=== PATIENT | male | born 1980 | race Caucasian/White ===

== ENCOUNTER 2018-05-12 01:27 | Emergency (ER) | payer SELFPAY ==
[2018-05-12 01:36] VITALS: BP 128/66
[2018-05-12] MEDS ORDERED: IBUPROFEN 800 MG TABLET PO ONE (01:50)
--- NOTE | 2018-05-12 01:58 | ER Document Report ---
ED Extremity Problem, Lower - General Chief Complaint: Ankle Injury Stated Complaint: ANKLE INJURY Time Seen by Provider: 05/12/18 01:49 Notes: Patient is a 37-year-old male who was walking down stairs this evening. States that his ankle rolled in because of the way that step was built. Patient initially was able to walk on his right leg and now cannot bear weight on it. Denies any other injuries. TRAVEL OUTSIDE OF THE [place] IN LAST 30 DAYS: No - HPI Patient complains to provider of: Injury, Pain, Swelling Location: Ankle Occurred: Just prior to arrival Where: Home Onset/Duration: Sudden Quality of pain: Achy, Dull Severity: Moderate Recent injury: Yes Exacerbated by: Walking Relieved by: Elevation, Rest - Related Data Allergies/Adverse Reactions: No Known Allergies Allergy (Verified 08/18/16 10:02) Past Medical History - General Information source: Patient - Social History Smoking Status: Unknown if Ever Smoked Drug Abuse: Other - h/o substance abuse Family History: Reviewed & Not Pertinent Psychiatric Medical History: Reports: Hx Depression Surgical Hx: Negative - Immunizations Hx Diphtheria, Pertussis, Tetanus Vaccination: Yes Review of Systems - Review of Systems Constitutional: No symptoms reported EENT: No symptoms reported Cardiovascular: No symptoms reported Respiratory: No symptoms reported Gastrointestinal: No symptoms reported Genitourinary: No symptoms reported Male Genitourinary: No symptoms reported Musculoskeletal: See HPI Skin: No symptoms reported Hematologic/Lymphatic: No symptoms reported Neurological/Psychological: No symptoms reported Physical Exam - Vital signs Vitals: Temp Pulse Resp BP Pulse Ox 98.5 F 92 16 128/66 H 95 05/12/18 01:35 05/12/18 01:35 05/12/18 01:35 05/12/18 01:35 05/12/18 01:35 Interpretation: Normal - General General appearance: Appears well, Alert - HEENT Head: Normocephalic, Atraumatic Eyes: Normal Pupils: PERRL - Respiratory Respiratory status: No respiratory distress Chest status: Nontender Breath sounds: Normal Chest palpation: Normal - Cardiovascular Rhythm: Regular Heart sounds: Normal auscultation Murmur: No - Abdominal Inspection: Normal Distension: No distension Bowel sounds: Normal Tenderness: Nontender Organomegaly: No organomegaly - Back Back: Normal, Nontender - Extremities General upper extremity: Normal inspection, Nontender, Normal color, Normal ROM , Normal temperature General lower extremity: Tender, Normal color, Normal temperature. No: Dot's sign Shoulder: Normal Arm: Normal Elbow: Normal Forearm: Normal Wrist: Normal Hand: Normal Hip: Normal Thigh: Normal Knee: Normal Calf: Normal Ankle: Tender - Right lateral malleolus and inferior to the right lateral malleolus - Neurological Neuro grossly intact: Yes Cognition: Normal Orientation: AAOx4 [place] Coma Scale Eye Opening: Spontaneous [place] Coma Scale Verbal: Oriented Brianna Coma Scale Motor: Obeys Commands Brianna Coma Scale Total: 15 Speech: Normal Motor strength normal: LUE, RUE, LLE, RLE Sensory: Normal - Psychological Associated symptoms: Normal affect, Normal mood - Skin Skin Temperature: Warm Skin Moisture: Dry Skin Color: Normal Course - Re-evaluation Re-evalutation: 05/12/18 02:55 No acute findings on x-ray. Patient will be placed in an ankle stirrup and given crutches. No other injuries. Stable for discharge. He may take over-the -counter medications as needed for pain. Agreeable with this plan. Follow-up with PMD. - Vital Signs Vital signs: Temp Pulse Resp BP Pulse Ox 98.5 F 92 16 128/66 H 95 05/12/18 01:35 05/12/18 01:35 05/12/18 01:35 05/12/18 01:35 05/12/18 01:35 - Diagnostic Test Radiology reviewed: Reports reviewed Procedures - Immobilization Right Ankle Pre-Proc Neuro Vasc Exam: Normal Immobilizer type: Ankle stirrup Performed by: PCT Post-Proc Neuro Vasc Exam: Normal Alignment checked and good: Yes Discharge - Discharge Clinical Impression: Right ankle sprain Qualifiers: Encounter type: initial encounter Involved ligament of ankle: unspecified ligament Qualified Code(s): S93.401A - Sprain of unspecified ligament of right ankle, initial encounter Condition: Stable Disposition: HOME, SELF-CARE Instructions: Ankle Stirrup Splint ([facility]), Use of Crutches ([facility]), Ice & Elevation ([facility]), Sprained Ankle ([facility]) Additional Instructions: Please follow-up with your doctor in 1 week. Please asked for orthopedic referral if symptoms persist.
--- NOTE | 2018-05-12 02:26 | RADIOLOGY REPORT (SQ) ---
EXAM DESCRIPTION: XR ANKLE 2 VIEWS COMPLETED DATE/TME: 05/12/2018 01:50 CLINICAL HISTORY: 37 years, Male, injury, pain COMPARISON: None. FINDINGS: 3 views of the right ankle. No acute fracture or dislocation. Normal osseous mineralization. Tibial plafond and talar dome have appropriate alignment. Base of the fifth metatarsal is intact. Diffuse soft tissue edema. IMPRESSION: No acute fracture or dislocation. 2010 [employer]- All Rights Reserved
--- NOTE | 2018-05-12 08:07 | RADIOLOGY REPORT (SQ) ---
EXAM DESCRIPTION: FOOT RIGHT COMPLETE COMPLETED DATE/TIME: 05/12/2018 2:09 am REASON FOR STUDY: injury, pain COMPARISON: None. NUMBER OF VIEWS: Three views. TECHNIQUE: AP, lateral and oblique radiographic images acquired of the right foot. LIMITATIONS: None. FINDINGS: MINERALIZATION: Normal. BONES: No acute fracture or dislocation. No worrisome bone lesions. JOINTS: No effusions. SOFT TISSUES: No soft tissue swelling. No foreign body. OTHER: No other significant finding. IMPRESSION: NEGATIVE STUDY OF THE RIGHT FOOT. NO RADIOGRAPHIC EVIDENCE OF ACUTE INJURY. TECHNICAL DOCUMENTATION: JOB ID: [id number] [employer]- All Rights Reserved Reading location - IP/workstation name: [email or web address]
== END 2018-05-12 03:00 | disposition home or self-care (01) ==
LOC: ER 01:27
DX: S93.401A Sprain of unspecified ligament of right ankle, initial encounter (principal); X50.0XXA Overexertion from strenuous movement or load, initial encounter; Y92.009 Unspecified place in unspecified non-institutional (private) residence as the place of occurrence of the external cause
CPT/HCPCS: 99283; 73610; 73630; L1902

== ENCOUNTER 2018-12-20 13:14 | Emergency (ER) | payer SELFPAY ==
[2018-12-20 14:02] VITALS: BP 125/70
--- NOTE | 2018-12-20 14:48 | ER Document Report ---
ED General - General Chief Complaint: Abscess Stated Complaint: POSSIBLE ABSCESS Time Seen by Provider: 12/20/18 14:41 Primary Care Provider: [facility] [Provider Group] - Follow up in 3-5 days TRAVEL OUTSIDE OF THE [place] IN LAST 30 DAYS: No - HPI Notes: Patient is a 38-year-old male that presents to the emergency department for chief complaint of left axillary abscess. Patient reports abscess started as a small area of redness about 1-1.5 weeks ago. He did try to sheri it at home but was unable to get any drainage. He states that after trying to sheri the area of redness increased. He reports sharp pain over the abscess that is worse with movement. He denies fevers and chills. He denies history of abscess. Past medical history: Negative Past Surgical History: Reviewed in chart Social History: Reviewed in chart Family History: Reviewed and noncontributory for presenting illness Allergies: Reviewed, see documented allergy list. REVIEW OF SYSTEMS: CONSTITUTIONAL : No fever No chills No diaphoresis No recent illness EENT: No vision changes No congestion No sore throat CARDIOVASCULAR: No chest pain No palpitations RESPIRATORY: No shortness of breath No cough No difficulty breathing GASTROINTESTINAL: No abdominal pain No nausea No vomiting No diarrhea GENITOURINARY: No dysuria No hematuria No difficulty urinating MUSCULOSKELETAL: No back pain No leg pain No arm pain SKIN: No rashes Abscess LYMPHATIC: No swollen, enlarged glands. NEUROLOGICAL: No lightheadedness No headache No weakness No paresthesias PSYCHIATRIC: No anxiety No depression PHYSICAL EXAMINATION: Vital signs reviewed, nursing noted reviewed. GENERAL: Well-appearing, well-nourished and in no acute distress. HEAD: Atraumatic, normocephalic. EYES: Eyes appear normal, extraocular movements intact, sclera anicteric, conjunctiva are normal. ENT: nares patent, oropharynx clear without exudates. Moist mucous membranes. NECK: Normal range of motion, supple without lymphadenopathy LUNGS: Breath sounds clear to auscultation bilaterally and equal. No wheezes rales or rhonchi. HEART: Regular rate and rhythm without murmurs ABDOMEN: Soft, nontender, normoactive bowel sounds. No rebound, guarding, or rigidity. No masses appreciated. EXTREMITIES: No long bone tenderness, good range of motion, no pitting or edema. NEUROLOGICAL: No focal neurological deficits. Moves all extremities spontaneously Motor and sensory grossly intact on exam. PSYCH: Normal mood, normal affect. SKIN: Warm, Dry, normal turgor, left axillary area of fluctuance and erythema measuring 4 cm x 2 cm with some mild surrounding erythema - Related Data Allergies/Adverse Reactions: No Known Allergies Allergy (Verified 12/20/18 13:18) Past Medical History - Social History Smoking Status: Unknown if Ever Smoked Family History: Reviewed & Not Pertinent Renal/ Medical History: Denies: Hx Peritoneal Dialysis Psychiatric Medical History: Reports: Hx Depression - Immunizations Hx Diphtheria, Pertussis, Tetanus Vaccination: Yes Physical Exam - Vital signs Vitals: Temp Pulse Resp BP Pulse Ox 98.5 F 60 18 125/70 99 12/20/18 14:01 12/20/18 14:01 12/20/18 14:01 12/20/18 14:01 12/20/18 14:01 Course - Re-evaluation Re-evalutation: 12/20/18 15:01 Vitals reviewed. Nursing notes reviewed. Patient's axillary abscess was incised and drained. Copious amounts of purulence was expressed. Patient will be placed on antibiotics for the surrounding cellulitis. He will follow with his primary care for reevaluation in the next few days. He was counseled on wound management. He is stable at discharge. - Vital Signs Vital signs: Temp Pulse Resp BP Pulse Ox 98.5 F 60 18 125/70 99 12/20/18 14:01 12/20/18 14:01 12/20/18 14:01 12/20/18 14:01 12/20/18 14:01 Procedures - Incision and Drainage Left Time completed: 15:02 - Left axilla Type: Simple Anesthetic type: 1% Lidocaine mL's of anesthetic: 3 Blade size: 11 I&D procedure: Betadine prep applied, Iodoform packing placed Incision Method: Incision made by scalpel Notes: 12/20/18 15:02 Abscess cleaned with Betadine. Anesthetized with local infiltration of lidocaine. Linear 1.5 cm incision made overlying the abscess using an 11 blade scalpel. Copious amounts of purulence were expressed. Loculations broken up with curvilinear clamp. Iodoform packing placed. Patient tolerated well with no immediate complications. Discharge - Discharge Clinical Impression: Abscess Condition: Stable Disposition: HOME, SELF-CARE Instructions: Abscess ([facility]), Cephalexin ([facility]), Post Incision and Drainage, Trimethoprim-Sulfa ([facility]) Additional Instructions: Please return to the emergency department if you have any worsening, or concern of your symptoms. Please return to the emergency department if you develop chest pain, difficulty breathing, severe abdominal pain, or ongoing vomiting. Please follow-up with your primary care physician in 2-3 days and any other recommended physicians. If prescribed, take all medications as directed. If you have any questions or concerns do not hesitate to return the emergency department for evaluation. Remove the packing if has not already fallen out in 24 hours Prescriptions: Cephalexin Monohydrate [Keflex 500 mg Capsule] 500 mg PO Q6H 7 Days capsule Sulfamethoxazole/Trimethoprim [Bactrim Ds Tablet] 1 each PO BID #14 tablet Referrals: [facility] [Provider Group] - Follow up in 3-5 days
== END 2018-12-20 15:09 | disposition home or self-care (01) ==
LOC: ER 13:14
PROC: 0H9CXZZ Drainage of Left Upper Arm Skin, External Approach (ICD-10-PCS; principal; 2018-12-20)
DX: L02.412 Cutaneous abscess of left axilla (principal)
CPT/HCPCS: 99283; 10060; A6266